=== PATIENT | male | born 1950 | race African-American/Black ===

== ENCOUNTER 2017-10-21 20:02 | Inpatient (IN) ==
[2017-10-21] MEDS ORDERED: FUROSEMIDE 100 MG/10 ML VIAL IV STA (20:37)
[2017-10-21] MEDS ORDERED: NITROGLYCERIN 2% OINT 1 INCH/GM PACK TOP STA (20:37)
[2017-10-21] MEDS ORDERED: NITROGLYCERIN 2% OINT 1 INCH/GM PACK TOP ONE (21:04)
[2017-10-21] MEDS ORDERED: FUROSEMIDE 20 MG/2 ML VIAL ONE (21:04)
[2017-10-21 21:25] LABS: Basophils % 0.3 % (0.0-0.8); Eosinophils % 0.6 % (0.00-10.9); Hematocrit 43.1 VOL% (42.0-52.0); Hemoglobin 13.8 GM/DL (14.0-18.0); Immature Granulocytes % 0.3 %; Immature Granulocytes Absolute 0.02 #; Lymphocytes # 1.7 10*3/uL (1.4-4.0); Lymphocytes % 26.3 % (21.2-54.2); Mean Corpuscular Hemoglobin 27 PG (27-34); Mean Platelet Volume 9.5 FL (9.6-12.0); Monocytes # 0.7 10*3/uL (0.11-0.8); Monocytes % 10.2 % (1.7-12.7); Neutrophils # 4.1 10*3/uL (1.4-7.4); Neutrophils % 62.3 % (38.7-73.9); Platelet Count 226 T/CUMM (130-400); Red Blood Count 5.19 MC/CUMM (3.8-5.5); Red Cell Distribution Width 17.6 % (9.3-17.3); White Blood Count 6.6 T/CUMM (4-12)
[2017-10-21 21:32] LABS: INR 1.1; PT Patient Result 11.6 SECS
[2017-10-21 21:44] LABS: Albumin 3.2 G/DL (3.4-5.0); Bilirubin,Total 0.6 MG/DL (0.2-1.0); Osmolality,Calculated 279.4 MOS/KG (273-304); Potassium 4.4 MMOL/L (3.5-5.1); Total Protein 6.4 G/DL (6.4-8.3); Troponin I Only 0.045 NG/ML (0.00-0.045)
[2017-10-22] MEDS ORDERED: MORPHINE 4 MG/1 ML VIAL IV PRN (01:42)
[2017-10-22] MEDS ORDERED: FUROSEMIDE 40 MG/4 ML VIAL IV ONE (01:42)
[2017-10-22 02:58] LABS: Risk Ratio 2.81; VLDL CHOLESTEROL 14.6 MG/DL
[2017-10-22 07:30] LABS: Total Protein,Urine Random 6 MG/DL
[2017-10-22 07:31] LABS: Creatinine,Urine Random < 5 MG/DL
[2017-10-22 07:39] LABS: Apearance,Urine CLEAR (Clear); Bacteria,Urine Occasional /HPF (Few); Bilirubin,Urine Negative (Negative); Blood, Urine Negative (Negative); Glucose,Urine (UA) Negative (Negative); Ketones,Urine Negative (Negative); Nitrite,Urine Negative (Negative); Protein,Urine Negative; Urine Color Straw (Yellow); Urine Specific Gravity 1.004 (1.001-1.035); Urine Urobilinogen < 2.0 EU/DL (0.2-1.0)
[2017-10-22] MEDS: FUROSEMIDE 40 MG/4 ML VIAL IV SCH ×2 (09:30→16:55)
[2017-10-22] MEDS: ENOXAPARIN 40 MG/0.4 ML SYRINGE SUBCUT SCH (09:30)
[2017-10-22] MEDS: PANTOPRAZOLE 40 MG TABLET PO SCH (09:31)
[2017-10-22] MEDS: DOCUSATE SODIUM 100 MG CAPSULE PO SCH ×2 (09:31→20:16)
[2017-10-22] MEDS: CARVEDILOL 3.125 MG TABLET PO SCH ×2 (11:19→20:16)
[2017-10-22] MEDS: LISINOPRIL 2.5 MG TABLET PO SCH (11:19)
[2017-10-22] MEDS: ONDANSETRON 4 MG/2 ML VIAL IV PRN (17:42)
[2017-10-23] MEDS: ONDANSETRON 4 MG/2 ML VIAL IV PRN ×2 (00:44→13:54)
[2017-10-23 05:30] LABS: Basophils % 0.5 % (0.0-0.8); Eosinophils % 0.6 % (0.00-10.9); Hematocrit 41.5 VOL% (42.0-52.0); Hemoglobin 13.3 GM/DL (14.0-18.0); Immature Granulocytes % 0.3 %; Immature Granulocytes Absolute 0.02 #; Lymphocytes # 1.8 10*3/uL (1.4-4.0); Lymphocytes % 27.9 % (21.2-54.2); Mean Corpuscular Hemoglobin 26 PG (27-34); Mean Corpuscular Volume 82.2 FL (87-102); Mean Platelet Volume 10.4 FL (9.6-12.0); Monocytes # 0.7 10*3/uL (0.11-0.8); Monocytes % 10.8 % (1.7-12.7); Neutrophils # 3.9 10*3/uL (1.4-7.4); Neutrophils % 59.9 % (38.7-73.9); Platelet Count 243 T/CUMM (130-400); Red Blood Count 5.05 MC/CUMM (3.8-5.5); Red Cell Distribution Width 17.2 % (9.3-17.3); White Blood Count 6.6 T/CUMM (4-12)
[2017-10-23 05:54] LABS: Albumin 3.2 G/DL (3.4-5.0); Bilirubin,Total 0.9 MG/DL (0.2-1.0); Osmolality,Calculated 279.5 MOS/KG (273-304); Potassium 4.4 MMOL/L (3.5-5.1); Total Protein 6.3 G/DL (6.4-8.3)
[2017-10-23] MEDS: FUROSEMIDE 40 MG/4 ML VIAL IV SCH ×2 (09:23→16:12)
[2017-10-23] MEDS: PANTOPRAZOLE 40 MG TABLET PO SCH (09:24)
[2017-10-23] MEDS: CARVEDILOL 3.125 MG TABLET PO SCH ×2 (09:24→20:26)
[2017-10-23] MEDS: LISINOPRIL 2.5 MG TABLET PO SCH (09:24)
[2017-10-23] MEDS: DOCUSATE SODIUM 100 MG CAPSULE PO SCH ×2 (09:24→20:26)
[2017-10-23] MEDS: ENOXAPARIN 40 MG/0.4 ML SYRINGE SUBCUT SCH (09:24)
[2017-10-24 05:22] LABS: Basophils % 0.5 % (0.0-0.8); Eosinophils # 0.1 10*3/uL (0.0-0.87); Hematocrit 41.5 VOL% (42.0-52.0); Hemoglobin 13.2 GM/DL (14.0-18.0); Immature Granulocytes % 0.3 %; Immature Granulocytes Absolute 0.02 #; Lymphocytes # 1.6 10*3/uL (1.4-4.0); Lymphocytes % 27.3 % (21.2-54.2); Mean Corpuscular HGB Conc 31.8 GM/DL (32-36); Mean Corpuscular Hemoglobin 26 PG (27-34); Mean Corpuscular Volume 82.7 FL (87-102); Mean Platelet Volume 10.9 FL (9.6-12.0); Monocytes # 0.7 10*3/uL (0.11-0.8); Monocytes % 12.5 % (1.7-12.7); Neutrophils # 3.4 10*3/uL (1.4-7.4); Neutrophils % 58.4 % (38.7-73.9); Platelet Count 245 T/CUMM (130-400); Red Blood Count 5.02 MC/CUMM (3.8-5.5); Red Cell Distribution Width 17.1 % (9.3-17.3); White Blood Count 5.8 T/CUMM (4-12)
[2017-10-24 05:50] LABS: Calcium 8.5 MG/DL (8.5-10.1); Osmolality,Calculated 280.5 MOS/KG (273-304)
[2017-10-24] MEDS: PANTOPRAZOLE 40 MG TABLET PO SCH (08:24)
[2017-10-24] MEDS: FUROSEMIDE 40 MG/4 ML VIAL IV SCH ×2 (08:24→16:08)
[2017-10-24] MEDS: ENOXAPARIN 40 MG/0.4 ML SYRINGE SUBCUT SCH (08:24)
[2017-10-24] MEDS: CARVEDILOL 3.125 MG TABLET PO SCH ×2 (08:24→20:52)
[2017-10-24] MEDS: DOCUSATE SODIUM 100 MG CAPSULE PO SCH ×2 (08:24→20:52)
[2017-10-24] MEDS: ONDANSETRON 4 MG/2 ML VIAL IV PRN ×2 (13:56→20:55)
[2017-10-25 05:15] LABS: Osmolality,Calculated 281.5 MOS/KG (273-304); Potassium 4.1 MMOL/L (3.5-5.1)
[2017-10-25] MEDS: FUROSEMIDE 40 MG/4 ML VIAL IV SCH ×2 (08:50→16:46)
[2017-10-25] MEDS: ENOXAPARIN 40 MG/0.4 ML SYRINGE SUBCUT SCH (08:50)
[2017-10-25] MEDS: DOCUSATE SODIUM 100 MG CAPSULE PO SCH ×2 (08:50→21:12)
[2017-10-25] MEDS: PANTOPRAZOLE 40 MG TABLET PO SCH (08:50)
[2017-10-25] MEDS: CARVEDILOL 3.125 MG TABLET PO SCH ×2 (08:50→21:11)
[2017-10-25] MEDS: ASPIRIN EC 81 MG TABLET PO SCH (13:33)
[2017-10-26 05:49] LABS: Calcium 9.1 MG/DL (8.5-10.1); Osmolality,Calculated 278.7 MOS/KG (273-304); Potassium 4.2 MMOL/L (3.5-5.1)
[2017-10-26] MEDS: ASPIRIN EC 81 MG TABLET PO SCH (08:27)
[2017-10-26] MEDS: DOCUSATE SODIUM 100 MG CAPSULE PO SCH ×2 (08:27→21:46)
[2017-10-26] MEDS: ENOXAPARIN 40 MG/0.4 ML SYRINGE SUBCUT SCH (08:27)
[2017-10-26] MEDS: FUROSEMIDE 40 MG/4 ML VIAL IV SCH ×2 (08:27→16:55)
[2017-10-26] MEDS: LISINOPRIL 2.5 MG TABLET PO SCH (08:27)
[2017-10-26] MEDS: PANTOPRAZOLE 40 MG TABLET PO SCH (08:27)
[2017-10-26] MEDS: CARVEDILOL 3.125 MG TABLET PO SCH ×2 (08:27→21:46)
[2017-10-27 04:43] LABS: Basophils % 0.5 % (0.0-0.8); Eosinophils # 0.1 10*3/uL (0.0-0.87); Eosinophils % 1.3 % (0.00-10.9); Hematocrit 40.9 VOL% (42.0-52.0); Immature Granulocytes % 0.7 %; Immature Granulocytes Absolute 0.04 #; Lymphocytes # 1.5 10*3/uL (1.4-4.0); Lymphocytes % 25.3 % (21.2-54.2); Mean Corpuscular HGB Conc 31.8 GM/DL (32-36); Mean Corpuscular Hemoglobin 27 PG (27-34); Mean Corpuscular Volume 83.5 FL (87-102); Mean Platelet Volume 10.5 FL (9.6-12.0); Monocytes # 0.8 10*3/uL (0.11-0.8); Monocytes % 13.7 % (1.7-12.7); Neutrophils # 3.5 10*3/uL (1.4-7.4); Neutrophils % 58.5 % (38.7-73.9); Platelet Count 239 T/CUMM (130-400); Red Cell Distribution Width 16.9 % (9.3-17.3)
[2017-10-27 05:34] LABS: Calcium 8.7 MG/DL (8.5-10.1); Osmolality,Calculated 280.5 MOS/KG (273-304); Potassium 3.8 MMOL/L (3.5-5.1)
[2017-10-27] MEDS: PANTOPRAZOLE 40 MG TABLET PO SCH (08:59)
[2017-10-27] MEDS: DOCUSATE SODIUM 100 MG CAPSULE PO SCH ×2 (08:59→21:48)
[2017-10-27] MEDS: LISINOPRIL 2.5 MG TABLET PO SCH (08:59)
[2017-10-27] MEDS: ENOXAPARIN 40 MG/0.4 ML SYRINGE SUBCUT SCH (08:59)
[2017-10-27] MEDS: CARVEDILOL 3.125 MG TABLET PO SCH ×2 (09:00→21:48)
[2017-10-27] MEDS: FUROSEMIDE 80 MG TABLET PO SCH ×2 (09:00→16:29)
[2017-10-27] MEDS: ASPIRIN EC 81 MG TABLET PO SCH (09:00)
[2017-10-28 05:23] LABS: Basophils % 0.5 % (0.0-0.8); Eosinophils # 0.1 10*3/uL (0.0-0.87); Eosinophils % 1.8 % (0.00-10.9); Hematocrit 40.5 VOL% (42.0-52.0); Hemoglobin 13.2 GM/DL (14.0-18.0); Immature Granulocytes % 0.5 %; Immature Granulocytes Absolute 0.03 #; Lymphocytes # 1.7 10*3/uL (1.4-4.0); Mean Corpuscular HGB Conc 32.6 GM/DL (32-36); Mean Corpuscular Hemoglobin 27 PG (27-34); Mean Corpuscular Volume 81.7 FL (87-102); Mean Platelet Volume 10.3 FL (9.6-12.0); Monocytes # 0.7 10*3/uL (0.11-0.8); Monocytes % 13.5 % (1.7-12.7); Neutrophils % 53.7 % (38.7-73.9); Platelet Count 246 T/CUMM (130-400); Red Blood Count 4.96 MC/CUMM (3.8-5.5); White Blood Count 5.5 T/CUMM (4-12)
[2017-10-28 05:57] LABS: Calcium 8.8 MG/DL (8.5-10.1); Osmolality,Calculated 277.7 MOS/KG (273-304)
[2017-10-28 05:58] LABS: Calcium 8.5 MG/DL (8.5-10.1); Osmolality,Calculated 279.5 MOS/KG (273-304); Potassium 4.1 MMOL/L (3.5-5.1)
[2017-10-28] MEDS: LISINOPRIL 2.5 MG TABLET PO SCH (08:30)
[2017-10-28] MEDS: ENOXAPARIN 40 MG/0.4 ML SYRINGE SUBCUT SCH (08:30)
[2017-10-28] MEDS: FUROSEMIDE 80 MG TABLET PO SCH (08:30)
[2017-10-28] MEDS: ASPIRIN EC 81 MG TABLET PO SCH (08:30)
[2017-10-28] MEDS: PANTOPRAZOLE 40 MG TABLET PO SCH (08:30)
[2017-10-28] MEDS: CARVEDILOL 3.125 MG TABLET PO SCH (08:30)
[2017-10-28] MEDS: DOCUSATE SODIUM 100 MG CAPSULE PO SCH (08:30)
[2017-10-28 11:55] VITALS: BP 107/76
== END 2017-10-28 13:13 | disposition home or self-care (01) | DRG 292 ==
LOC: N.ED 20:02 → SUATTDRO 22:18 → N.EDINP 22:18 → N.TELEN 22:49
PROVIDERS: ADMIT Family Medicine; ATTEND Internal Medicine

== ENCOUNTER 2021-02-17 02:06 | Observation (INO) ==
[2021-02-17 03:20] LABS: Basophils % 0.1 % (0.0-0.8); Hematocrit 36.4 VOL% (42.0-52.0); Hemoglobin 11.8 GM/DL (14.0-18.0); Immature Granulocytes % 0.3 %; Immature Granulocytes Absolute 0.03 #; Lymphocytes # 1.4 10*3/uL (1.4-4.0); Mean Corpuscular HGB Conc 32.4 GM/DL (32-36); Mean Corpuscular Volume 80.5 FL (87-102); Mean Platelet Volume 9.6 FL (9.6-12.0); Monocytes % 14.2 % (1.7-12.7); Neutrophils % 69.4 % (38.7-73.9); Platelet Count 203 T/CUMM (130-400); Red Blood Count 4.52 MC/CUMM (3.8-5.5); Red Cell Distribution Width 17.1 % (9.3-17.3); White Blood Count 8.7 T/CUMM (4-12)
[2021-02-17 03:46] LABS: Albumin 3.2 G/DL (3.4-5.0); Bilirubin,Total 0.5 MG/DL (0.20-1.00); Calcium 8.2 MG/DL (8.5-10.1); Osmolality,Calculated 282.5 MOS/KG (273-304); Potassium 3.8 MMOL/L (3.5-5.1); Total Protein 6.3 G/DL (6.4-8.2)
[2021-02-17] MEDS ORDERED: GLUCAGON 1 MG VIAL IM PRN (03:56)
[2021-02-17] MEDS ORDERED: DEXTROSE 50% 25 GM/50 ML VIAL IV PRN (03:56)
[2021-02-17 04:04] LABS: INR 2.5
[2021-02-17 04:06] LABS: PT Patient Result 26.5 SECS (10.5-12.0)
[2021-02-17] MEDS ORDERED: NICOTINE 21 MG/24 HR PATCH TRANSDERM PRN (04:33)
[2021-02-17] MEDS ORDERED: MORPHINE 2 MG/1 ML SYRINGE IV PRN (04:33)
[2021-02-17] MEDS ORDERED: ONDANSETRON 4 MG/2 ML VIAL IV PRN (04:33)
[2021-02-17] MEDS ORDERED: CALCIUM CARBONATE CHEW 500 MG TABLET PO PRN (04:33)
[2021-02-17] MEDS ORDERED: ACETAMINOPHEN 325 MG TABLET PO PRN (04:33)
[2021-02-17] MEDS ORDERED: hydrALAZINE 20 MG/1 ML VIAL IV PRN (04:33)
[2021-02-17 05:30] LABS: ABG HCO3 23.5 MMOL/L (20-26); ABG Oxygen Saturation 94.2 % (95-100); ABG PCO2 36.2 MM HG (35-48); ABG PH 7.413 (7.35-7.45); ABG PO2 73.3 MM HG (80-95); ABG TCO2 20.6 MMOL/L (23-27)
[2021-02-17 06:00] LABS: Risk Ratio 2.25; VLDL Cholesterol 11.4 MG/DL
[2021-02-17 06:01] LABS: Ferritin 248.6 ng/ml (26-388)
[2021-02-17] MEDS ORDERED: ENOXAPARIN 40 MG/0.4 ML SYRINGE SUBCUT SCH (09:00)
[2021-02-17] MEDS ORDERED: DOXYCYCLINE HYCLATE INJ 100 MG in SODIUM CHLORIDE 0.9% 100 ML IV SCH (09:00)
[2021-02-17] MEDS ORDERED: WARFARIN 4 MG TABLET PO SCH ×2 (10:30→18:00)
[2021-02-17] MEDS: ASPIRIN EC 81 MG TABLET PO SCH (10:58)
[2021-02-17] MEDS: cefTRIAXone 1,000 MG in SODIUM CHLORIDE 0.9% 100 ML IV SCH (10:58)
[2021-02-17 13:11] LABS: Bilirubin,Urine Negative (Negative); Blood, Urine Small mg/dL (Negative); Glucose,Urine (UA) Negative (Negative); Ketones,Urine Negative (Negative); Nitrite,Urine Negative (Negative); Protein,Urine 30 MG/DL; Urine Appearance CLOUDY (Clear); Urine Color Amber (Yellow)
[2021-02-17] MEDS: lisinopriL 2.5 MG TABLET PO SCH (14:03)
[2021-02-17] MEDS: carvediloL 3.125 MG TABLET PO SCH ×2 (14:04→16:41)
[2021-02-17] MEDS: DOXYCYCLINE HYCLATE INJ 100 MG in SODIUM CHLORIDE 0.9% 100 ML IV SCH ×2 (14:08→16:42)
[2021-02-17] MEDS: FUROSEMIDE 80 MG TABLET PO SCH (16:41)
[2021-02-17] MEDS: ATORVASTATIN 40 MG TABLET PO SCH (20:04)
[2021-02-17] MEDS: POTASSIUM CHLORIDE 20 MEQ TABLET PO SCH (20:47)
[2021-02-18] MEDS: DOXYCYCLINE HYCLATE INJ 100 MG in SODIUM CHLORIDE 0.9% 100 ML IV SCH (00:26)
[2021-02-18 06:36] LABS: Basophils % 0.3 % (0.0-0.8); Eosinophils # 0.1 10*3/uL (0.0-0.87); Eosinophils % 2.3 % (0.00-10.9); Hematocrit 36.1 VOL% (42.0-52.0); Hemoglobin 11.4 GM/DL (14.0-18.0); Immature Granulocytes % 0.3 %; Immature Granulocytes Absolute 0.02 #; Lymphocytes # 1.7 10*3/uL (1.4-4.0); Mean Corpuscular HGB Conc 31.6 GM/DL (32-36); Mean Corpuscular Volume 82.6 FL (87-102); Mean Platelet Volume 9.8 FL (9.6-12.0); Monocytes % 17.2 % (1.7-12.7); Neutrophils % 51.9 % (38.7-73.9); Platelet Count 191 T/CUMM (130-400); Red Blood Count 4.37 MC/CUMM (3.8-5.5); Red Cell Distribution Width 17.3 % (9.3-17.3); White Blood Count 6.2 T/CUMM (4-12)
[2021-02-18 07:03] LABS: Eosinophils 1 % (0-10); Hypochromasia Slight; Lymphocytes 23 % (20-55); Microcytosis Slight; Platelet Estimate Adequate; Segmented Neutrophils 61 % (50-85); Total Cells Counted 100
[2021-02-18 07:06] LABS: Calcium 8.7 MG/DL (8.5-10.1); Osmolality,Calculated 277.7 MOS/KG (273-304); Potassium 3.9 MMOL/L (3.5-5.1)
[2021-02-18] MEDS: POTASSIUM CHLORIDE 20 MEQ TABLET PO SCH ×2 (08:22→20:28)
[2021-02-18] MEDS: carvediloL 3.125 MG TABLET PO SCH ×2 (08:22→16:07)
[2021-02-18] MEDS: ASPIRIN EC 81 MG TABLET PO SCH (08:23)
[2021-02-18] MEDS: lisinopriL 2.5 MG TABLET PO SCH (08:23)
[2021-02-18] MEDS: FUROSEMIDE 80 MG TABLET PO SCH ×2 (08:25→16:07)
[2021-02-18] MEDS: cefTRIAXone 1,000 MG in SODIUM CHLORIDE 0.9% 100 ML IV SCH (09:30)
[2021-02-18] MEDS ORDERED: WARFARIN 5 MG TABLET PO SCH ×2 (10:25→18:00)
[2021-02-18] MEDS ORDERED: SODIUM PHOSPHATE ENEMA 133 ML BOTTLE RECTAL ONE (12:52)
[2021-02-18] MEDS ORDERED: POLYETHYLENE GLYCOL POWDER 17 GM PACK PO PRN (12:52)
[2021-02-18] MEDS ORDERED: SODIUM PHOSPHATE ENEMA 133 ML BOTTLE RECTAL PRN (12:52)
[2021-02-18] MEDS ORDERED: LACTULOSE 20 GM/30 ML UDCUP PO ONE (12:52)
[2021-02-18 13:30] LABS: INR 1.8; PT Patient Result 19.1 SECS (10.5-12.0)
[2021-02-18] MEDS: ATORVASTATIN 40 MG TABLET PO SCH (18:01)
[2021-02-19 05:50] LABS: Basophils % 0.3 % (0.0-0.8); Eosinophils # 0.2 10*3/uL (0.0-0.87); Eosinophils % 3.2 % (0.00-10.9); Hematocrit 35.8 VOL% (42.0-52.0); Hemoglobin 11.3 GM/DL (14.0-18.0); Immature Granulocytes % 0.5 %; Immature Granulocytes Absolute 0.03 #; Lymphocytes # 2.3 10*3/uL (1.4-4.0); Lymphocytes % 35.6 % (21.2-54.2); Mean Corpuscular HGB Conc 31.6 GM/DL (32-36); Mean Corpuscular Volume 81.9 FL (87-102); Mean Platelet Volume 10.2 FL (9.6-12.0); Monocytes % 16.2 % (1.7-12.7); Neutrophils % 44.2 % (38.7-73.9); Platelet Count 213 T/CUMM (130-400); Red Blood Count 4.37 MC/CUMM (3.8-5.5); Red Cell Distribution Width 17.3 % (9.3-17.3); White Blood Count 6.5 T/CUMM (4-12)
[2021-02-19 06:00] LABS: INR 1.9; PT Patient Result 19.9 SECS (10.5-12.0)
[2021-02-19 06:02] LABS: Calcium 8.6 MG/DL (8.5-10.1); Osmolality,Calculated 280.3 MOS/KG (273-304)
[2021-02-19 06:36] LABS: Atypical Lymphocytes Few; Band Neutrophils 3 % (0-10); Eosinophils 2 % (0-10); Hypochromasia Slight; Lymphocytes 37 % (20-55); Segmented Neutrophils 44 % (50-85); Total Cells Counted 100
[2021-02-19 06:37] LABS: Microcytosis 1+; Platelet Estimate Normal
[2021-02-19 08:44] VITALS: BP 126/77
[2021-02-19] MEDS: lisinopriL 2.5 MG TABLET PO SCH (09:20)
[2021-02-19] MEDS: ASPIRIN EC 81 MG TABLET PO SCH (09:20)
[2021-02-19] MEDS: POTASSIUM CHLORIDE 20 MEQ TABLET PO SCH (09:20)
[2021-02-19] MEDS: FUROSEMIDE 80 MG TABLET PO SCH (09:21)
[2021-02-19] MEDS: carvediloL 3.125 MG TABLET PO SCH (09:21)
[2021-02-19] MEDS: cefTRIAXone 1,000 MG in SODIUM CHLORIDE 0.9% 100 ML IV SCH (09:25)
[2021-02-19] MEDS ORDERED: CEFUROXIME 500 MG TABLET PO SCH (21:00)
== END 2021-02-19 13:35 | disposition home or self-care (01) ==
LOC: SUATTDRO → N.EDINP 02:06 → N.ED 02:06 → SUATTDRO 06:36 → N.TELES 07:51
PROVIDERS: ADMIT Internal Medicine; ATTEND Internal Medicine

== ENCOUNTER 2022-07-13 13:27 | Inpatient (IN) ==
[2022-07-13] MEDS ORDERED: ASPIRIN 325 MG TABLET PO STA (14:21)
[2022-07-13] MEDS ORDERED: ALUM/MAG/SIMETH/LIDO VISC 1:1 30 ML BOTTLE PO STA (14:21)
[2022-07-13 14:40] LABS: Basophils % 0.2 % (0.0-0.8); Eosinophils % 0.3 % (0.00-10.9); Immature Granulocytes % 4.6 %; Immature Granulocytes Absolute 0.72 #; Lymphocytes % 18.7 % (21.2-54.2); Mean Corpuscular HGB Conc 31.8 GM/DL (32-36); Mean Corpuscular Volume 89.5 FL (87-102); Mean Platelet Volume 9.1 FL (9.6-12.0); Monocytes # 1.9 10*3/uL (0.11-0.8); Monocytes % 11.9 % (1.7-12.7); NRBC # 1.78 10*3/uL; Neutrophils % 64.3 % (38.7-73.9); Platelet Count 300 T/CUMM (130-400); Red Blood Count 1.72 MC/CUMM (3.8-5.5); Red Cell Distribution Width 19.3 % (9.3-17.3); White Blood Count 15.8 T/CUMM (4-12)
[2022-07-13 14:42] LABS: Hemoglobin 4.9 GM/DL (14.0-18.0)
[2022-07-13 14:43] LABS: Hematocrit 15.4 VOL% (42.0-52.0)
[2022-07-13] MEDS ORDERED: PANTOPRAZOLE INJ 80 MG in SODIUM CHLORIDE 0.9% 100 ML IV ONE (14:55)
[2022-07-13 15:01] LABS: Albumin 3.4 G/DL (3.4-5.0); Bilirubin,Total 2.2 MG/DL (0.20-1.00); Calcium 8.7 MG/DL (8.5-10.1); Potassium 3.8 MMOL/L (3.5-5.1); Total Protein 6.6 G/DL (6.4-8.2)
[2022-07-13] MEDS ORDERED: SODIUM CHLORIDE 0.9% 1,000 ML IV PRN (15:12)
[2022-07-13] MEDS ORDERED: PANTOPRAZOLE 40 MG VIAL IV ONE (15:28)
[2022-07-13] MEDS ORDERED: CALCIUM CARBONATE CHEW 500 MG TABLET PO PRN (15:54)
[2022-07-13] MEDS ORDERED: ALBUTEROL 2.5 MG/3 ML NEB RESP TX PRN (15:54)
[2022-07-13] MEDS ORDERED: ALUMINUM/MAGNES/SIMETH MAX STR 30 ML UDCUP PO PRN (15:54)
[2022-07-13] MEDS ORDERED: SIMETHICONE CHEW 125 MG TABLET PO PRN (15:54)
[2022-07-13] MEDS ORDERED: ONDANSETRON 4 MG/2 ML VIAL IV PRN (15:54)
[2022-07-13] MEDS ORDERED: ACETAMINOPHEN 325 MG TABLET PO PRN (15:54)
[2022-07-13] MEDS ORDERED: FUROSEMIDE 40 MG/4 ML VIAL IV PRN (16:01)
[2022-07-13] MEDS: PANTOPRAZOLE INJ 200 MG in SODIUM CHLORIDE 0.9% 250 ML IV SCH (16:52)
[2022-07-13 17:08] LABS: PT Patient Result > 178.9 SECS (10.1-12.1)
[2022-07-13 17:09] LABS: INR > 17.6
[2022-07-13] MEDS ORDERED: PHYTONADIONE 10 MG/1 ML AMP SUBCUT STA (17:12)
[2022-07-14 05:28] LABS: Basophils % 0.3 % (0.0-0.8); Eosinophils # 0.1 10*3/uL (0.0-0.87); Hematocrit 20.1 VOL% (42.0-52.0); Immature Granulocytes % 5.2 %; Lymphocytes % 22.1 % (21.2-54.2); Mean Corpuscular HGB Conc 31.8 GM/DL (32-36); Mean Corpuscular Volume 92.2 FL (87-102); Mean Platelet Volume 9.2 FL (9.6-12.0); Monocytes # 1.5 10*3/uL (0.11-0.8); Monocytes % 11.5 % (1.7-12.7); NRBC # 1.35 10*3/uL; Neutrophils % 59.9 % (38.7-73.9); Platelet Count 252 T/CUMM (130-400); Red Blood Count 2.18 MC/CUMM (3.8-5.5); Red Cell Distribution Width 18.5 % (9.3-17.3); White Blood Count 13.4 T/CUMM (4-12)
[2022-07-14 05:34] LABS: Hemoglobin 6.4 GM/DL (14.0-18.0)
[2022-07-14 05:51] LABS: PT Patient Result 136.6 SECS (10.1-12.1)
[2022-07-14 05:53] LABS: Anisocytosis Slight; Band Neutrophils 1 % (0-10); Hypochromia Slight; Lymphocytes 21 % (20-55); Microcytosis Slight; Nucleated Red Blood Cells 12 /100 WBC (0-5); Platelet Estimate Adequate; Total Cells Counted 100
[2022-07-14] MEDS ORDERED: SODIUM CHLORIDE 0.9% 1,000 ML IV PRN ×2 (05:56→08:21)
[2022-07-14 06:02] LABS: Calcium 8.3 MG/DL (8.5-10.1); Osmolality,Calculated 278.7 MOS/KG (273-304); Potassium 4.1 MMOL/L (3.5-5.1); Risk Ratio 2.14; Thyroid Stimulating Hormone 1.27 uIU/ml (0.358-3.74)
[2022-07-14] MEDS ORDERED: NON-FORMULARY MEDICATION (Albuterol Sulfate [Ventolin Hfa] 90 MCG/PUFF HFA aerosol inhaler INH PRN (08:18)
[2022-07-14] MEDS: carvediloL 3.125 MG TABLET PO SCH ×2 (09:51→17:30)
[2022-07-14] MEDS: lisinopriL 2.5 MG TABLET PO SCH (09:51)
[2022-07-14] MEDS: CYANOCOBALAMIN 500 MCG TABLET PO SCH (09:51)
[2022-07-14] MEDS ORDERED: FUROSEMIDE 20 MG/2 ML VIAL IV ONE (10:00)
[2022-07-14 11:11] LABS: RBC,Urine 22 /HPF (0-4); Squamous Epithelial Cell,Urine Occasional /HPF (0-10)
[2022-07-14 11:12] LABS: Urine Appearance Slightly Hazy (Clear); Urine Color Yellow (Yellow); Urine pH 5.5 (4.5-8.0)
[2022-07-14 11:13] LABS: Bilirubin,Urine Negative (Negative); Blood, Urine Small mg/dL (Negative); Glucose,Urine (UA) Negative (Negative); Ketones,Urine Negative (Negative); Nitrite,Urine Negative (Negative); Protein,Urine Negative (Negative)
[2022-07-14] MEDS: PANTOPRAZOLE INJ 200 MG in SODIUM CHLORIDE 0.9% 250 ML IV SCH (17:33)
[2022-07-15 00:09] LABS: Hematocrit 22.5 VOL% (42.0-52.0); Hemoglobin 7.3 GM/DL (14.0-18.0)
[2022-07-15 05:39] LABS: Basophils % 0.2 % (0.0-0.8); Eosinophils # 0.2 10*3/uL (0.0-0.87); Eosinophils % 1.3 % (0.00-10.9); Hemoglobin 7.5 GM/DL (14.0-18.0); Immature Granulocytes % 5.6 %; Immature Granulocytes Absolute 0.71 #; Lymphocytes # 2.6 10*3/uL (1.4-4.0); Lymphocytes % 20.3 % (21.2-54.2); Mean Corpuscular HGB Conc 32.6 GM/DL (32-36); Mean Corpuscular Volume 90.9 FL (87-102); Mean Platelet Volume 9.5 FL (9.6-12.0); Monocytes # 1.4 10*3/uL (0.11-0.8); Monocytes % 11.3 % (1.7-12.7); NRBC # 0.57 10*3/uL; Neutrophils % 61.3 % (38.7-73.9); Platelet Count 244 T/CUMM (130-400); Red Blood Count 2.53 MC/CUMM (3.8-5.5); Red Cell Distribution Width 18.6 % (9.3-17.3); White Blood Count 12.7 T/CUMM (4-12)
[2022-07-15 05:44] LABS: INR 4.1; PT Patient Result 40.9 SECS (10.1-12.1)
[2022-07-15 05:55] LABS: Calcium 8.1 MG/DL (8.5-10.1); Osmolality,Calculated 279.5 MOS/KG (273-304); Potassium 3.8 MMOL/L (3.5-5.1)
[2022-07-15] MEDS: LEVOTHYROXINE 100 MCG TABLET PO SCH (06:07)
[2022-07-15 06:15] LABS: Eosinophils 1 % (0-10); Hypochromia Slight; Lymphocytes 14 % (20-55); Nucleated Red Blood Cells 4 /100 WBC (0-5); Platelet Estimate Adequate; Total Cells Counted 100
[2022-07-15] MEDS: CYANOCOBALAMIN 500 MCG TABLET PO SCH (08:50)
[2022-07-15] MEDS: carvediloL 3.125 MG TABLET PO SCH ×2 (08:50→17:14)
[2022-07-15] MEDS: lisinopriL 2.5 MG TABLET PO SCH (08:51)
[2022-07-15] MEDS ORDERED: SODIUM CHLORIDE 0.9% 1,000 ML IV PRN (09:02)
[2022-07-15] MEDS ORDERED: FUROSEMIDE 40 MG/4 ML VIAL IV ONE (09:02)
[2022-07-15 14:23] LABS: Hematocrit 26.7 VOL% (42.0-52.0); Hemoglobin 8.7 GM/DL (14.0-18.0)
[2022-07-15] MEDS: PANTOPRAZOLE INJ 200 MG in SODIUM CHLORIDE 0.9% 250 ML IV SCH (17:14)
[2022-07-16 05:33] LABS: Basophils % 0.2 % (0.0-0.8); Eosinophils # 0.3 10*3/uL (0.0-0.87); Eosinophils % 2.7 % (0.00-10.9); Hematocrit 25.6 VOL% (42.0-52.0); Hemoglobin 8.3 GM/DL (14.0-18.0); Immature Granulocytes % 3.7 %; Immature Granulocytes Absolute 0.36 #; Lymphocytes # 2.3 10*3/uL (1.4-4.0); Lymphocytes % 23.8 % (21.2-54.2); Mean Corpuscular HGB Conc 32.4 GM/DL (32-36); Mean Corpuscular Volume 90.8 FL (87-102); Mean Platelet Volume 9.3 FL (9.6-12.0); Monocytes # 1.2 10*3/uL (0.11-0.8); Monocytes % 11.7 % (1.7-12.7); NRBC # 0.17 10*3/uL; Neutrophils % 57.9 % (38.7-73.9); Platelet Count 245 T/CUMM (130-400); Red Blood Count 2.82 MC/CUMM (3.8-5.5); Red Cell Distribution Width 19.1 % (9.3-17.3); White Blood Count 9.8 T/CUMM (4-12)
[2022-07-16] MEDS: LEVOTHYROXINE 100 MCG TABLET PO SCH (05:36)
[2022-07-16 05:40] LABS: INR 2.8; PT Patient Result 28.7 SECS (10.1-12.1)
[2022-07-16 05:47] LABS: Osmolality,Calculated 279.5 MOS/KG (273-304); Potassium 3.9 MMOL/L (3.5-5.1)
[2022-07-16 06:03] LABS: Platelet Estimate Adequate
[2022-07-16] MEDS: DAPAGLIFLOZIN 10 MG TABLET PO SCH (09:18)
[2022-07-16] MEDS: carvediloL 3.125 MG TABLET PO SCH ×2 (09:18→16:51)
[2022-07-16] MEDS: lisinopriL 2.5 MG TABLET PO SCH (09:19)
[2022-07-16] MEDS: CYANOCOBALAMIN 500 MCG TABLET PO SCH (09:19)
[2022-07-16] MEDS: predniSONE 20 MG TABLET PO SCH (20:58)
[2022-07-16] MEDS: PANTOPRAZOLE 40 MG TABLET PO SCH (20:59)
[2022-07-17 05:41] LABS: Basophils % 0.1 % (0.0-0.8); Hematocrit 28.3 VOL% (42.0-52.0); Immature Granulocytes % 1.4 %; Immature Granulocytes Absolute 0.14 #; Lymphocytes # 0.8 10*3/uL (1.4-4.0); Lymphocytes % 7.5 % (21.2-54.2); Mean Corpuscular HGB Conc 31.8 GM/DL (32-36); Mean Corpuscular Volume 93.4 FL (87-102); Mean Platelet Volume 9.4 FL (9.6-12.0); Monocytes # 0.4 10*3/uL (0.11-0.8); Monocytes % 4.1 % (1.7-12.7); NRBC # 0.03 10*3/uL; Neutrophils % 86.9 % (38.7-73.9); Platelet Count 261 T/CUMM (130-400); Red Blood Count 3.03 MC/CUMM (3.8-5.5); Red Cell Distribution Width 20.4 % (9.3-17.3); White Blood Count 10.4 T/CUMM (4-12)
[2022-07-17] MEDS: LEVOTHYROXINE 100 MCG TABLET PO SCH (05:50)
[2022-07-17 05:51] LABS: Calcium 8.8 MG/DL (8.5-10.1); Osmolality,Calculated 274.2 MOS/KG (273-304); Potassium 4.2 MMOL/L (3.5-5.1)
[2022-07-17 05:52] LABS: PT Patient Result 20.6 SECS (10.1-12.1)
[2022-07-17] MEDS: DAPAGLIFLOZIN 10 MG TABLET PO SCH (09:50)
[2022-07-17] MEDS: carvediloL 3.125 MG TABLET PO SCH ×2 (09:50→17:22)
[2022-07-17] MEDS: PANTOPRAZOLE 40 MG TABLET PO SCH ×2 (09:51→21:26)
[2022-07-17] MEDS: predniSONE 20 MG TABLET PO SCH (09:51)
[2022-07-17] MEDS: CYANOCOBALAMIN 500 MCG TABLET PO SCH (09:51)
[2022-07-17] MEDS: lisinopriL 2.5 MG TABLET PO SCH (09:51)
[2022-07-18 05:40] LABS: Basophils % 0.1 % (0.0-0.8); Eosinophils % 0.1 % (0.00-10.9); Hematocrit 25.2 VOL% (42.0-52.0); Immature Granulocytes % 0.9 %; Immature Granulocytes Absolute 0.12 #; Lymphocytes # 1.6 10*3/uL (1.4-4.0); Lymphocytes % 11.5 % (21.2-54.2); Mean Corpuscular HGB Conc 31.7 GM/DL (32-36); Mean Platelet Volume 9.6 FL (9.6-12.0); Monocytes # 1.2 10*3/uL (0.11-0.8); Monocytes % 8.5 % (1.7-12.7); NRBC # 0.05 10*3/uL; Neutrophils % 78.9 % (38.7-73.9); Platelet Count 255 T/CUMM (130-400); Red Blood Count 2.74 MC/CUMM (3.8-5.5); Red Cell Distribution Width 20.3 % (9.3-17.3); White Blood Count 13.6 T/CUMM (4-12)
[2022-07-18 05:46] LABS: INR 1.7; PT Patient Result 17.6 SECS (10.1-12.1)
[2022-07-18] MEDS: LEVOTHYROXINE 100 MCG TABLET PO SCH (05:57)
[2022-07-18 06:00] LABS: Calcium 8.9 MG/DL (8.5-10.1); Osmolality,Calculated 284.3 MOS/KG (273-304)
[2022-07-18] MEDS: CYANOCOBALAMIN 500 MCG TABLET PO SCH (09:07)
[2022-07-18] MEDS: predniSONE 20 MG TABLET PO SCH (09:07)
[2022-07-18] MEDS: DAPAGLIFLOZIN 10 MG TABLET PO SCH (09:07)
[2022-07-18] MEDS: carvediloL 3.125 MG TABLET PO SCH ×2 (09:07→17:51)
[2022-07-18] MEDS: PANTOPRAZOLE 40 MG TABLET PO SCH ×2 (09:07→20:23)
[2022-07-18] MEDS: lisinopriL 2.5 MG TABLET PO SCH (09:07)
[2022-07-19 04:38] LABS: Basophils % 0.1 % (0.0-0.8); Eosinophils # 0.1 10*3/uL (0.0-0.87); Eosinophils % 0.4 % (0.00-10.9); Hematocrit 25.6 VOL% (42.0-52.0); Hemoglobin 8.2 GM/DL (14.0-18.0); Immature Granulocytes Absolute 0.14 #; Lymphocytes % 14.8 % (21.2-54.2); Mean Corpuscular Volume 92.1 FL (87-102); Mean Platelet Volume 9.1 FL (9.6-12.0); Monocytes # 1.2 10*3/uL (0.11-0.8); Monocytes % 8.6 % (1.7-12.7); NRBC # 0.08 10*3/uL; Neutrophils % 75.1 % (38.7-73.9); Platelet Count 263 T/CUMM (130-400); Red Blood Count 2.78 MC/CUMM (3.8-5.5); Red Cell Distribution Width 20.2 % (9.3-17.3); White Blood Count 13.7 T/CUMM (4-12)
[2022-07-19 04:48] LABS: Calcium 8.5 MG/DL (8.5-10.1); Osmolality,Calculated 284.3 MOS/KG (273-304)
[2022-07-19 04:50] LABS: INR 1.4; PT Patient Result 15.1 SECS (10.1-12.1)
[2022-07-19] MEDS: LEVOTHYROXINE 100 MCG TABLET PO SCH (05:54)
[2022-07-19 08:11] LABS: Albumin 2.8 G/DL (3.4-5.0); Bilirubin,Direct 0.3 MG/DL (0.0-0.20); Bilirubin,Indirect 0.6 MG/DL (0.0-1.0); Bilirubin,Total 0.9 MG/DL (0.20-1.00); Total Protein 5.9 G/DL (6.4-8.2)
[2022-07-19] MEDS ORDERED: propofoL 200 MG/20 ML VIAL IV ONE (14:16)
[2022-07-19] MEDS ORDERED: LIDOCAINE 2% 5 ML VIAL ONE (14:16)
[2022-07-19] MEDS: carvediloL 3.125 MG TABLET PO SCH ×2 (14:51→18:15)
[2022-07-19] MEDS ORDERED: BISACODYL 5 MG TABLET PO ONE (15:00)
[2022-07-19] MEDS: PANTOPRAZOLE 40 MG TABLET PO SCH ×2 (15:27→20:55)
[2022-07-19] MEDS: CYANOCOBALAMIN 500 MCG TABLET PO SCH (15:27)
[2022-07-19] MEDS: lisinopriL 2.5 MG TABLET PO SCH (15:27)
[2022-07-19] MEDS: predniSONE 20 MG TABLET PO SCH (15:28)
[2022-07-19] MEDS: SPIRONOLACTONE 25 MG TABLET PO SCH (15:34)
[2022-07-19] MEDS: DAPAGLIFLOZIN 10 MG TABLET PO SCH (15:34)
[2022-07-19] MEDS: LACTATED RINGERS 1,000 ML IV SCH (15:50)
[2022-07-19] MEDS: SODIUM CHLORIDE 0.9% 1,000 ML IV SCH (15:50)
[2022-07-19] MEDS ORDERED: POLYETHYLENE GLYCOL POWDER 255 GM BOTTLE PO ONE (18:00)
[2022-07-20 04:42] LABS: Basophils % 0.3 % (0.0-0.8); Eosinophils # 0.3 10*3/uL (0.0-0.87); Hematocrit 27.2 VOL% (42.0-52.0); Hemoglobin 8.4 GM/DL (14.0-18.0); Immature Granulocytes % 0.8 %; Immature Granulocytes Absolute 0.09 #; Lymphocytes # 2.4 10*3/uL (1.4-4.0); Lymphocytes % 21.9 % (21.2-54.2); Mean Corpuscular HGB Conc 30.9 GM/DL (32-36); Mean Corpuscular Volume 94.1 FL (87-102); Mean Platelet Volume 9.4 FL (9.6-12.0); Monocytes % 9.6 % (1.7-12.7); NRBC # 0.03 10*3/uL; Neutrophils % 64.4 % (38.7-73.9); Platelet Count 266 T/CUMM (130-400); Red Blood Count 2.89 MC/CUMM (3.8-5.5); Red Cell Distribution Width 20.5 % (9.3-17.3); White Blood Count 10.8 T/CUMM (4-12)
[2022-07-20] MEDS ORDERED: POLYETHYLENE GLYCOL POWDER 255 GM BOTTLE PO ONE ×2 (05:00→12:00)
[2022-07-20 05:07] LABS: Calcium 8.5 MG/DL (8.5-10.1); Osmolality,Calculated 282.3 MOS/KG (273-304); Potassium 4.6 MMOL/L (3.5-5.1)
[2022-07-20] MEDS: LEVOTHYROXINE 100 MCG TABLET PO SCH (06:19)
[2022-07-20] MEDS: CYANOCOBALAMIN 500 MCG TABLET PO SCH (10:59)
[2022-07-20] MEDS: lisinopriL 2.5 MG TABLET PO SCH (10:59)
[2022-07-20] MEDS: DAPAGLIFLOZIN 10 MG TABLET PO SCH (10:59)
[2022-07-20] MEDS: predniSONE 20 MG TABLET PO SCH (11:03)
[2022-07-20] MEDS: PANTOPRAZOLE 40 MG TABLET PO SCH ×2 (11:03→21:56)
[2022-07-20] MEDS: carvediloL 3.125 MG TABLET PO SCH ×2 (11:03→17:43)
[2022-07-20] MEDS: SODIUM CHLORIDE 0.9% 1,000 ML IV SCH (11:03)
[2022-07-20] MEDS: SPIRONOLACTONE 25 MG TABLET PO SCH (11:03)
[2022-07-20 12:58] LABS: INR 1.1; PT Patient Result 11.9 SECS (10.1-12.1)
[2022-07-20] MEDS: LACTATED RINGERS 1,000 ML IV SCH (17:46)
[2022-07-21 05:54] LABS: Basophils % 0.2 % (0.0-0.8); Eosinophils # 0.2 10*3/uL (0.0-0.87); Eosinophils % 1.4 % (0.00-10.9); Hematocrit 29.5 VOL% (42.0-52.0); Hemoglobin 9.1 GM/DL (14.0-18.0); Immature Granulocytes % 0.7 %; Immature Granulocytes Absolute 0.08 #; Lymphocytes # 2.3 10*3/uL (1.4-4.0); Mean Corpuscular HGB Conc 30.8 GM/DL (32-36); Mean Corpuscular Volume 94.9 FL (87-102); Mean Platelet Volume 9.3 FL (9.6-12.0); Monocytes # 1.1 10*3/uL (0.11-0.8); Monocytes % 9.3 % (1.7-12.7); Neutrophils % 68.4 % (38.7-73.9); Platelet Count 288 T/CUMM (130-400); Red Blood Count 3.11 MC/CUMM (3.8-5.5); Red Cell Distribution Width 20.7 % (9.3-17.3); White Blood Count 11.4 T/CUMM (4-12)
[2022-07-21 06:18] LABS: Osmolality,Calculated 278.5 MOS/KG (273-304); Potassium 4.4 MMOL/L (3.5-5.1)
[2022-07-21] MEDS: LEVOTHYROXINE 100 MCG TABLET PO SCH (07:30)
[2022-07-21] MEDS: CYANOCOBALAMIN 500 MCG TABLET PO SCH (09:38)
[2022-07-21] MEDS: predniSONE 20 MG TABLET PO SCH (09:39)
[2022-07-21] MEDS: PANTOPRAZOLE 40 MG TABLET PO SCH (09:39)
[2022-07-21] MEDS: lisinopriL 2.5 MG TABLET PO SCH (09:39)
[2022-07-21] MEDS: carvediloL 3.125 MG TABLET PO SCH (09:39)
[2022-07-21] MEDS: SPIRONOLACTONE 25 MG TABLET PO SCH (09:39)
[2022-07-21] MEDS: DAPAGLIFLOZIN 10 MG TABLET PO SCH (09:39)
[2022-07-21 11:02] VITALS: BP 104/65
[2022-07-21] MEDS: SODIUM CHLORIDE 0.9% 1,000 ML IV SCH (13:49)
[2022-07-21] MEDS: LACTATED RINGERS 1,000 ML IV SCH (15:25)
== END 2022-07-21 14:10 | disposition home health service (06) | DRG 918 ==
LOC: N.ED 13:27 → N.EDINP 13:27 → SUATTDRO 16:13 → N.3E 17:37 → SUATTDRO 18:59 → N.3E 07-19 10:28
PROVIDERS: ADMIT Internal Medicine; ATTEND Emergency Medicine